=== PATIENT | female | born 1970 | race Caucasian/White ===

== ENCOUNTER 2020-05-16 09:49 | Outpatient (CLI) | payer OTHER, SELFPAY ==
--- NOTE | 2020-05-16 10:14 | XR_ITS ---
WS: [id number] Lumbar spine, 3 views, 05/16/2020 Clinical Data: LOW BACK PAIN Comparison: None. Findings: No compression fractures or subluxation is seen. Degenerative disc narrowing at L5-S1 is seen. There are anterior and lateral osteoarthritic spurs from L1 through L5. The transverse processes and SI berenice nts are not remarkable. There are clips in the upper abdomen from a cholecystectomy. XR/XR lumbar spine 2-3V* [id number] Impression: 1. Osteoarthritis of all the lumbar vertebral bodies. 2. Degenerative disc narrowing at L5-S1.
--- NOTE | 2020-05-16 10:14 | XR_ITS ---
WS: [id number] Right knee, 2 views, 05/16/2020 Clinical Data: R KNEE PAIN Comparison: None. Findings: There are small osteophytes at the lateral tibial plateau and lateral femoral condyle. Ther e is a small posterior superior spur of the patella. No fractures or dislocations are seen. XR/XR knee RT 1-2V [id number] Impression: Minimal osteoarthritis of the posterior patella and lateral joint compartment o f the right knee.
== END 2020-05-16 09:50 | disposition home or self-care (01) ==
LOC: RAD 10:01
PROVIDERS: Visit Provider Nurse Practitioner Family
DX: M54.5 Low back pain (principal); I10 Essential (primary) hypertension; F41.8 Other specified anxiety disorders
CPT/HCPCS: 72100; 73560